=== PATIENT | male | born 1960 | race Caucasian/White ===

== ENCOUNTER → 2023-04-03 | Outpatient (CLI) | payer BC | END | disposition home or self-care (01) | LOC: SHCH 15:19 | PROVIDERS: ATTEND Internal Medicine | DX: I08.8 Other rheumatic multiple valve diseases (principal); I10 Essential (primary) hypertension | CPT/HCPCS: 93306 ==

== ENCOUNTER → 2024-03-20 | Outpatient (CLI) | payer BC ==
[2024-03-20 12:50] LABS: POTASSIUM 3.9 mmol/L (3.5-5.1)
== END | disposition home or self-care (01) ==
LOC: LAB 09:47
PROVIDERS: ATTEND Internal Medicine
DX: I45.10 Unspecified right bundle-branch block (principal)
CPT/HCPCS: 36415; 80048

== ENCOUNTER → 2024-03-21 | Outpatient (CLI) | payer BC ==
[~2024-03-21] MED LIST: IOHEXOL 350 MG/ML 100ML INFUS..BTL IV ONE
--- NOTE | 2024-03-21 11:21 | HMCIMG ---
CT ANGIO CHEST/THORAX AAA HISTORY: Personal of ascending aorta COMPARISON: None TECHNIQUE: CT angiography of the chest was performed. The study was performed using angiographic technique with maximum intensity projection reconstruction images. Patient was given cc of Omnipaque through intravenous route. FINDINGS: No CT evidence of filling defect is seen to suggest pulmonary embolus. No CT evidence of aortic dissection is seen. Ascending thoracic aorta is dilated measuring 4.8 x 4.4 cm. Coronary artery calcifications are seen. No evidence of parenchymal disease is seen. No CT evidence of pleural effusion or pericardial effusion is seen. The heart is enlarged. No evidence of adrenal mass is seen. Degenerative changes of the spine are noted. Fatty changes of liver are noted. Postcholecystectomy changes are seen. IMPRESSION: 1. No CT evidence of acute pulmonary embolus or aortic dissection is seen. Ascending thoracic aortic aneurysm measuring 4.[address] was performed with one or more following dose reduction techniques: automated exposure control, adjustment of the mA and kv according to patient's size, or use of a iterative reconstruction technique.
== END | disposition home or self-care (01) ==
LOC: RAH 08:55
PROVIDERS: ATTEND Internal Medicine
DX: I71.21 Aneurysm of the ascending aorta, without rupture (principal); I31.39 Other pericardial effusion (noninflammatory); K76.0 Fatty (change of) liver, not elsewhere classified; I25.10 Atherosclerotic heart disease of native coronary artery without angina pectoris; M47.814 Spondylosis without myelopathy or radiculopathy, thoracic region; Z90.49 Acquired absence of other specified parts of digestive tract
CPT/HCPCS: 71275; Q9967

== ENCOUNTER → 2024-03-22 | Outpatient (CLI) | payer BC | END | disposition home or self-care (01) | LOC: SHCH 10:54 | PROVIDERS: ATTEND Internal Medicine | DX: I71.21 Aneurysm of the ascending aorta, without rupture (principal) | CPT/HCPCS: 93306 ==